=== PATIENT | female | born 1960 | race Caucasian/White ===

== ENCOUNTER 2019-09-09 06:54 | Day surgery (SDC) | payer BC ==
--- NOTE | 2019-09-01 14:27 | HP ---
PREOPERATIVE HISTORY AND PHYSICAL: DATE OF ADMISSION/SURGERY: 09/09/19 DATE OF OFFICE VISIT/ENCOUNTER: 08/17/19 ATTENDING SURGEON: Johanny Jacobson MD * (DICTATED BY SASKIA ALEJANDRA) PROCEDURE: Right wrist carpal tunnel release. HISTORY OF PRESENT ILLNESS: This is a 59-year-old female who complains of numbness and tingling in her right hand. 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 She thinks that the work she has been doing has made the symptoms worse. She has lot of trouble sleeping. It has gotten to the point where the numbness is present most of the time. She has tried wearing a wrist brace, but that is not very helpful. She denies any specific injury. She has been diagnosed with carpal tunnel syndrome and is interested in surgical intervention at this time. PAST MEDICAL HISTORY: Unremarkable. PAST SURGICAL HISTORY: 1. Tonsillectomy. 2. Endometrial ablation. 3. Hysterectomy. CURRENT MEDICATIONS: 1. Valtrex 500 mg as needed. 2. Vitamin B12. 3. Multivitamin. 4. Vitamin D. ALLERGIES: CODEINE causes nausea and vomiting. FAMILY MEDICAL HISTORY: Heart disease, hypertension, stroke, cancer. SOCIAL HISTORY: The patient is an innkeeper at the [employer]. She denies tobacco use. She smokes marijuana on occasion and drinks alcohol on occasion. REVIEW OF SYSTEMS: Negative for general, cephalic, cardiovascular, respiratory , GI, , other musculoskeletal, integumentary, endocrine, neurologic, and hematologic symptoms. Infectious Disease: Negative for MRSA, hepatitis C, HIV. PHYSICAL EXAMINATION GENERAL: A well-developed, well-nourished 59-year-old female, in no acute distress. VITAL SIGNS: Height 5 feet 6-1/2 inches, weight 239 pounds. Blood pressure 118 /68, pulse rate 76. HEENT: Normocephalic, atraumatic. Pupils are equal, round, and reactive to light and accommodation. Extraocular movements are intact. Throat is clear. NECK: Supple. No palpable lymph nodes. PULMONARY: Lungs are clear to auscultation bilaterally. No wheezes, rales, or rhonchi. CARDIOVASCULAR: Regular rate and rhythm. S1, S2. No murmurs, rubs, or gallops. No edema. ABDOMEN: Positive bowel sounds. Soft, nontender. NEUROLOGICAL: Alert and oriented x3. Cranial nerves II through XII are intact. MUSCULOSKELETAL: On exam of her right hand, she has slight thenar wasting and slight weakness with thumb abduction on the right compared to the left. No weakness with finger abduction. Negative Tinel's at the ulnar nerve at the elbow and the wrist. Positive median nerve compression test. Positive Tinel's sign at the carpal tunnel. She can fully flex and extend her fingers. Skin is intact. Sensation is intact to light touch. IMPRESSION: Right carpal tunnel syndrome. PLAN: The patient is scheduled to undergo right wrist carpal tunnel release on 09/09/[address] Jacobson. She will return to the office 10 days postop for followup and suture removal. A prescription for tramadol was e-scribed to the patient's pharmacy for postoperative pain management. SASKIA ALEJANDRA [id number]/[facility] #: [id number] [place]
[~2019-09-09 06:54] MED LIST: Buffered Lidocaine 1% SYRIN* 1 ML/SYRINGE INTRADERM ONE; Lactated Ringers 1000 ML Bag* 1,000 ML IV SCH
[2019-09-09] MEDS ORDERED: Lidocaine 1% INJ* 10 MG/ML 30 ML SDV ONE (07:23)
[2019-09-09] MEDS ORDERED: Naloxone* 0.4 MG/ML 1 ML VIAL IV PRN (07:49)
[2019-09-09] MEDS ORDERED: Lidocaine 2% PF * 5 ML VIAL ONE (08:15)
[2019-09-09] MEDS ORDERED: Propofol* 10 MG/ML 20 ML BTL ONE (08:15)
[2019-09-09 09:16] VITALS: BP 119/61
--- NOTE | 2019-09-09 12:33 | OP ---
DATE OF OPERATION: 09/09/19 [facility] DATE OF : 64 SURGEON: Johanny Jacobson MD VAULT MECHANIC: SASKIA Salgado ANESTHESIA: Local MAC. PRE-OP DIAGNOSIS: Right carpal tunnel syndrome. POST-OP DIAGNOSIS: Right carpal tunnel syndrome. OPERATIVE PROCEDURE: Right carpal tunnel release. ESTIMATED BLOOD LOSS: Zero. TOURNIQUET TIME: About 10 minutes. INDICATIONS FOR PROCEDURE: Angelique is a 59-year-old female who has numbness and tingling in the median nerve distribution of her right hand. She presents for right carpal tunnel release. DESCRIPTION OF PROCEDURE: The patient was brought to the operating room, was given a sedation anesthetic and a local infiltration of 10 cc of 1% plain lidocaine in the palm of her right hand. The skin of her right hand and forearm was prepped and draped in the usual sterile fashion. The hand and forearm were exsanguinated and the tourniquet elevated to 250 mmHg. A longitudinal incision was made in the palm in line with the ring finger and we dissected through the subcutaneous tissue down to the transverse carpal ligament. The ligament was divided sharply with a knife and then more proximally with the scissors. The nerve was dissected free from the surrounding tissue and there was an area of moderate compression at the mid portion of the ligament. The wound was irrigated and the skin edges reapproximated with 4- 0 nylon suture. The wound was dressed with Xeroform, 4x4 , Webril, and an Rashawn wrap. The patient tolerated the procedure well and was brought to the recovery room in good condition. [id number]/[facility] #: [id number] [place]
== END 2019-09-09 09:11 | disposition home or self-care (01) ==
LOC: OREAST 06:54
PROVIDERS: ATTEND Orthopaedic Surgery
DX: G56.01 Carpal tunnel syndrome, right upper limb (principal)
CPT/HCPCS: J2704